=== PATIENT | female | born 1985 | race Caucasian/White ===

== ENCOUNTER 2021-02-10 16:32 | Emergency (ER) | payer OTHER, SELFPAY ==
[2021-02-10 16:55] VITALS: BP 137/85; PULSE 84; RESP 18; TEMP 36.6; O2SAT 99; BMI 35.6
--- NOTE | 2021-02-10 17:01 | ED_ITS ---
HPI - Female Genitourinary General: Chief complaint: Urogenital-Female Stated complaint: Sent from [place]..Possible UTI Time Seen by Provider: 02/10/21 17:01 Source: patient Mode of arrival: ambulatory Limitations: no limitations History of Present Illness: HPI Narrative: 35-year-old female comes in today with complaints of urinary changes. Patient reports for the last week she has had some low back pain and then 3 days ago she had a bout of enuresis. Patient has no history of chronic back problems. Patient has no significant fever. Patient does report about 2 weeks ago state had an episode of gastroenteritis in the house, since then she did have some constipation. Patient also reports that her low back has hurt her a little bit since riding a 4 rogel about 2 weeks a go. Patient denies any other symptoms. Patient also reports that she had a epidural with her last and since then she has had some increased back pain. Patient's other history includes cardiomyopathy after . MD elicited complaint: back pain and urinary incontinence Pertinent past history: tubal ligation Onset (ago): day(s) Location of symptoms: low back Severity: mild Female Urogenital Radiation: Non-Radiating Quality of pain: dull Vaginal discharge: none Vaginal bleeding: none Exacerbating factors: none Associated symptoms: Reports no associated symptoms Treatment prior to arrival: none Possible : other Review of Systems General: Reports: 10 or more systems reviewed and unremarkable except in HPI and below : Reports: urinary incontinence Musc: Reports: back pain Physical Exam Const: COMMON NORMALS: no acute distress and patient oriented x3 GENERAL APPEARANCE: cooperative HENMT: COMMON NORMALS: normocephalic and Normal external nose present HEAD & SCALP: normal to inspection and normocephalic NOSE: Normal external nose present Eye: GENERAL EYE: appearance normal, both eyes and all related structures Neck/C-Spine: COMMON NORMALS: full ROM Chest: COMMONS NORMALS: normal inspection of the chest Resp: COMMON NORMALS: normal respiratory effort EFFORT & INSPECTION: Yes able to speak in complete sentences Cardio: COMMON NORMALS: regular rate and regular rhythm RATE: regular rate RHYTHM: regular rhythm GI: COMMON NORMALS: non-tender : COMMON NORMALS: Yes no CVA tenderness BLADDER/KIDNEY EXAM: Yes no CVA tenderness Back/Pelvis: COMMON NORMALS: no CVA tenderness LUMBAR SPINE/LOWER BACK: Yes paraspinal muscle spasm Extremity: COMMON NORMALS: normal to inspection Neuro: COMMON NORMALS: patient oriented x3 and moves all extremities Psych: COMMON NORMALS: mental status grossly normal and cooperative Skin: COMMON NORMALS: no rashes or lesions noted GENERAL SKIN EXAM: no rashes or lesions noted Course Vital Signs: Vital signs: Vital Signs Temperature 97.8 F 02/10/21 16:55 Pulse Rate 84 02/10/21 16:55 Respiratory Rate 18 02/10/21 16:55 Blood Pressure 137/85 02/10/21 16:55 Pulse Oximetry 99 02/10/21 16:55 MDM - Female MDM Narrative: Medical decision making narrative: Patient comes in for concerns of low back pain and urinary incontinence. Patient also reports some mild discomfort with urination but she was more concerned of having 1 incident of enuresis about 3 days ago. Patient has had no further problems with that but has also noticed some low back pain. On exam there is no midline spinal tenderness, but there is some paraspinous muscle tenderness. Abdomen is soft with some mild tenderness to the right suprapubic area. Vital signs are normal. Differential diagnosis includes but not limited to stress incontinence, urinary tract infection, intervertebral disc disease, cauda equina syndrome. No significant signs for cauda equina syndrome is noted. Patient did have one episode of nocturnal enuresis but also reports some episodes of stress incontinence with coughing. Urinalysis showed a small amount of red blood cells along with a trace of white blood cells. I recommended we go ahead and treat for urinary tract infection with Macrobid 100 mg twice a day for 5 days. Patient then should follow-up with primary care for further evaluation and treatment. I reviewed the possibility of stress incontinence and possibility of neurologic etiology. At this time there is no strong indication for neurologic etiology, and patient may have a mild urinary tract infection or just some idiopathic stress incontinence. Patient stated understanding of plan and recommendations for follow-up. Lab Data: Labs: Lab Results 02/10/21 02/10/21 Range/Units 16:50 16:50 Urine Color Yellow (Yellow) Urine Appearance Cloudy (CLEAR) Urine pH 7 (5-7) Ur Specific Gravit y 1.010 (1.005-1.030) Urine Protein Neg (Negative) Urine Glucose (UA) Norm (Normal) Urine Ketones Negative (Negative) Urine Blood 2+ H (Negative) Urine Nitrate Negative (Negative) Urine Bilirubin Neg (Negative) Urine Urobilinogen Norm (Negative) mg/dL Ur Leukocyte Marie ase Negative (Negative) Urine RBC Rare (0-2) /hpf Urine WBC Rare (0-5) /hpf Ur Squamous Epith Cells 0-4 H (0-5) /hpf Amorphous Sediment Not Reportable Urine Bacteria Trace (NONE) /hpf Urine HCG, Qual Negative (Negative) Discharge Plan Discharge Patient Disposition: Home Clinical Impression: Urinary tract infection Qualifiers: Urinary tract infection type: acute cystitis Hematuria presence: with hematuria Qualified Code(s): N30.01 - Acute cystitis with hematuria Condition: Stable Prescriptions: New Macrobid 100 mg capsule 100 mg PO BID 5 Days Qty: 10 RF: 0 Discharge Orders: Discharge ED (Routine); Ordered 02/10/21 Ordered By: Tanmay Vyas Referrals: Gunner Nagy DO [Primary Care Provider] - Discharge Diet: Usual diet Discharge Activity: Increase activity as tolerated Patient Instructions: Urinary Tract Infection in Women (ED), Opioid Safety Activity Restrictions/Additional Instructions: Healthy diet and activity. Take antibiotic with plenty of fluids. Follow-up with primary care for further evaluation and treatment. Return to the emergency department for new concerns. 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
[2021-02-10 17:27] LABS: Add Urine Microscopic? YES; Bacteria Urine TRACE /hpf; Bilirubin Urine Neg (Negative); Blood Urine 2+ (Negative); Glucose Urine UA Norm (Normal); Ketones Urine Negative (Negative); Leukocyte Esterase Urine Negative (Negative); Nitrate Urine Negative (Negative); Protein Urine Neg (Negative); RBC Urine RARE /hpf (0-2); Squamous Epithelial Cell Urine 0-4 /hpf (0-5); Urine Appearance Cloudy (CLEAR); Urine Color Yellow (Yellow); Urobilinogen Urine Norm (Negative); WBC Urine RARE /hpf (0-5); pH Urine 7 (5-7)
[2021-02-10 18:02] VITALS: BP 132/76; PULSE 83; RESP 16; O2SAT 99
== END 2021-02-10 18:03 | disposition home or self-care (01) ==
PROVIDERS: Emergency Provider Nurse Practitioner Family; PCP Emergency Medicine Emergency Medical Services
DX: N30.01 Acute cystitis with hematuria (principal)
CPT/HCPCS: 81001; 81025; 99282

== ENCOUNTER 2022-06-02 15:32 | Emergency (ER) | payer OTHER, SELFPAY ==
[2022-06-02 16:36] VITALS: BP 126/75; PULSE 71; RESP 16; TEMP 36.6; O2SAT 99; BMI 32.9
--- NOTE | 2022-06-02 19:07 | USR_ITS ---
PROCEDURE INFORMATION: Exam: US Pelvis Complete, Transabdominal and US Duplex Artery or Vein, Ovaries, Limited Exam date and time: 06/02/2022 8:18 PM Age: 37 years old Clinical indication: Other: Irregular menstruation; Additional info: Vag bleed/pain TECHNIQUE: Imaging protocol: Real-time transabdominal pelvic ultrasound with image documentation. Real-time duplex ultrasound scan of the arterial or venous flow of the ovaries with B-mode, color Doppler flow and spectral waveform analysis. Complete Pelvis, Limited Duplex. COMPARISON: CT abdomen pelvis w con* [id number] 03/29/2017 11:13 AM FINDINGS: Uterus: Poorly visualized endometrium measuring about 7 mm. No large uterine myoma or obvious imaging signs of adenomyosis. Cervix: Poorly visualized cervix. Vagina: Details are somewhat limited due to lack of endovaginal imaging. Right ovary/adnexa: Right ovary measures 2.1 x 2.3 x 3.2 cm. No obvious adnexal region masses. Next item Doppler flow is seen in both ovarian parenchyma demonstrating normal spectral waveforms. Left ovary/adnexa: Left ovary measures 2.1 x 2.5 by 3.1 cm. Intraperitoneal space: Transabdominal pelvic ultrasound were obtained. Duplex imaging was also performed due to pain and to exclude torsion. Urinary bladder: Bladder is suboptimally assessed due to nondistention. Anteverted uterus measures 6.9 by 3.5 x 5 cm. US/US pelvic with transvaginal IMPRESSION: 1. Somewhat limited details due to lack of endovaginal imaging. No acute abnormality or large / suspicious lesions otherwise. No ascites. No ovarian torsion. 2. Suboptimally visualized cervix and endometrium. Follow-up imaging including endovaginal ultrasound may be obtained if clinically indicated.
--- NOTE | 2022-06-02 19:07 | W.ED.FEMALGU ---
HPI - Female Genitourinary General: Chief complaint: Vaginal Bleeding Stated complaint: Heavy menstral bleeding/ COVIID + Time Seen by Provider: 06/02/22 18:47 Source: patient Mode of arrival: ambulatory Limitations: no limitations History of Present Illness: Patient is a 37-year-old female presents to ED today with a complaint of prolonged and heavy vaginal bleeding. Patient states she has a history of endometriosis but states over the past year or so her menstrual cycles have been fairly regular. She states approximately 10 days ago she began having some mild pelvic cramping that she states was consistent starting her cycle. She began having bleeding and about 4 to 5 days into her cycle contracted COVID. Patient states COVID symptoms were minimal and she feels like she is fully recovered from these and is not having any complaints at this time. She states her menstrual cycle however has been prolonged and seems to go from periods of very heavy bleeding and clots to light almost nonexistent bleeding. She states today while headed into work she thought menstrual cycle had subsided but then began developing sharp pelvic pains and noticed a gush of blood . Patient currently is not having pain. She is status post tubal ligation. She is not complaining of any vaginal discharge or vaginal odor. MD elicited complaint: vaginal bleeding and other (prolonged period) Pertinent past history: other (endometriosis) Onset (ago): day(s) (10 days ago) Quality of pain: cramping Vaginal bleeding: heavy and clots Exacerbating factors: none Relieving factors: none Associated symptoms: Deny abdominal pain, headache(s) or nausea Sexual activity: Yes (monogamous with ) Patient : No (hx of tubal ligation) Review of Systems Const: Denies: fever(s), chills, body aches, fatigue or malaise Card: Denies: chest pain Resp: Denies: dyspnea GI: Denies: abdominal pain, nausea, vomiting or diarrhea : Reports: vaginal bleeding and pelvic pain; Denies: flank pain, difficulty voiding, dysuria, urinary frequency, urinary urgency, urinary hesitancy, genital lesions, genital pruritis or vaginal odor Musc: Denies: back pain, extremity pain or joint pain Skin/Breast: Denies: rash Neuro: Denies: headache(s) Physical Exam Const: COMMON NORMALS: no acute distress, patient oriented x3, no limitations, alert and well nourished GENERAL APPEARANCE: cooperative ORIENTATION/CONSCIOUSNESS: Yes awake, Yes oriented to person, Yes oriented to place and Yes oriented to time Resp: COMMON NORMALS: normal respiratory effort and clear to auscultation bilaterally AUSCULTATION: clear to auscultation bilaterally Cardio: COMMON NORMALS: regular rate and regular rhythm RATE: regular rate RHYTHM: regular rhythm GI: COMMON NORMALS: Normal to inspection, nondistended, normoactive bowel sounds present, Soft to palpation, No hepatosplenomegaly present and no masses INSPECTION: Yes normal to inspection AUSCULTATION: Yes normoactive bowel sounds PALPATION: Yes Soft to palpation, Yes Tenderness to palpation present (GI) (mild discomfort throughout lower pelvis), No Guarding due to palpation present (GI), No Rigid due to palpation and Yes No hepatosplenomegaly present : COMMON NORMALS: Yes no CVA tenderness BLADDER/KIDNEY EXAM: Yes no CVA tenderness OB/EXTERNAL & SPECULUM: Deferred OB/external & speculum exam Back/Pelvis: COMMON NORMALS: no CVA tenderness Neuro: SACHIN COMA SCALE: document GCS findings Sachin coma scale eye opening: Spontaneous Sachin coma scale verbal response: Orientated Sachin coma scale motor response: Obey commands Sachin coma scale total score: 15 COMMON NORMALS: patient oriented x3 SENSORIUM/ORIENTATION: Yes alert, Yes oriented to person, Yes oriented to place and Yes oriented to time Skin: COMMON NORMALS: no rashes or lesions noted GENERAL SKIN EXAM: no rashes or lesions noted Course Vital Signs: Vital signs: Vital Signs Temperature 97.9 F 06/02/22 16:36 Pulse Rate 71 06/02/22 16:36 Respiratory Rate 16 06/02/22 16:36 Blood Pressure 126/75 06/02/22 16:36 Pulse Oximetry 99 06/02/22 16:36 Oxygen Delivery Me thod 06/02/22 16:36 MDM - Female Medical Decision Making Patient here with a prolonged menstrual cycle of approximately 10 days now. Her vital signs are stable. Her H&H are normal. Remainder of blood work is unremarkable. is negative. Pelvic ultrasound is suboptimal. Ultimately at this time I think patient is stable for discharge from an emergency standpoint with recommendations to follow-up with her primary care in 5 to 7 days of bleeding still persistent. Return to ED precautions regarding worsening or heavy bleeding or severe pain were discussed with patient who verbalized understanding. Lab Data : 06/02/22 19:34 06/02/22 19:34 Radiology Impressions Pelvic/Transvag US 06/02/22 19:07 IMPRESSION: 1. Somewhat limited details due to lack of endovaginal imaging. No acute abnormality or large / suspicious lesions otherwise. No ascites. No ovarian torsion. 2. Suboptimally visualized cervix and endometrium. Follow-up imaging including endovaginal ultrasound may be obtained if clinically indicated. Laboratory Results WBC 3.5 10^3/uL (4.0-10.0) L 06/02/22 19:34 RBC 4.56 10^6/uL (4.1-5.3) 06/02/22 19:34 Hgb 13.3 g/dL (11.5-15.3) 06/02/22 19:34 Hct 40.3 % (37.0-47.0) 06/02/22 19:34 MCV 88.4 fl (81-99) 06/02/22 19:34 MCH 29.2 pg (28.0-34.0) 06/02/22 19:34 MCHC 33.0 g/dL (30.0-36.0) 06/02/22 19:34 RDW 12.8 % (12.1-15.1) 06/02/22 19:34 Plt Count 188 10^3/cmm (130-400) 06/02/22 19:34 MPV 10.9 fL (7.4-10.4) H 06/02/22 19:34 Neut % (Auto) 38.2 % 06/02/22 19:34 Lymph % (Auto) 49.0 % 06/02/22 19:34 Crenshaw % (Auto) 10.8 % 06/02/22 19:34 Eos % (Auto) 1.4 % 06/02/22 19:34 Baso % (Auto) 0.3 % 06/02/22 19:34 Neut # (Auto) 1.34 10^3/uL (1.8-7.7) L 06/02/22 19:34 Lymph # (Auto) 1.7 10^3/uL (0.8-4.8) 06/02/22 19:34 Crenshaw # (Auto) 0.4 10^3/uL (0.2-0.9) 06/02/22 19:34 Eos # (Auto) 0.1 10^3/uL (0.0-0.8) 06/02/22 19:34 Baso # (Auto) 0.0 10^3/uL (0.0-0.1) 06/02/22 19:34 Nucleated RBC % (auto) 0 % 06/02/22 19:34 Nucleated RBCs # 0.0 /100WBC 06/02/22 19:34 Sodium 142 mmol/L (136-145) 06/02/22 19:34 Potassium 3.7 mmol/L (3.5-5.1) 06/02/22 19:34 Chloride 105 mmol/L (98-107) 06/02/22 19:34 Carbon Dioxide 25 mmol/L (22-) 06/02/22 19:34 Anion Gap 15.7 (5-19) 06/02/22 19:34 BUN 9 mg/dL (6-20) 06/02/22 19:34 Creatinine 0.6 mg/dL (0.5-0.9) 06/02/22 19:34 GFR Calculation 113.8 mL/min (90-130) 06/02/22 19:34 Glucose 94 mg/dL (65-115) 06/02/22 19:34 Calculated Osmolality 292 mOsm/kg (285-295) 06/02/22 19:34 Calcium 8.9 mg/dL (8.5-10.5) 06/02/22 19:34 Total Bilirubin 0.3 mg/dL (0.15-1.2) 06/02/22 19:34 AST 24 U/L (0-32) 06/02/22 19:34 ALT 27 U/L (0-33) 06/02/22 19:34 Alkaline Phosphatase 56 IU/L (35-105) 06/02/22 19:34 Total Protein 7.1 g/dL (6.6-8.7) 06/02/22 19:34 Albumin 4.5 g/dL (3.5-5.2) 06/02/22 19:34 Globulin 2.6 g/dL (1.3-4.6) 06/02/22 19:34 HCG, Qual Negative (Negative) 06/02/22 19:34 Discharge Plan Discharge Patient Disposition: Home Clinical Impression: Prolonged menstrual cycle Condition: Stable Discharge Orders: Discharge ED (Routine); Ordered 06/02/22 Ordered By: Gem Schaffer Referrals: Gunner Nagy DO [Primary Care Provider] - Coding 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
[2022-06-02 19:41] LABS: Basophils % 0.3 %; Eosinophils # 0.1 10^3/uL (0.0-0.8); Eosinophils % 1.4 %; Hematocrit 40.3 % (37.0-47.0); Hemoglobin 13.3 g/dL (11.5-15.3); Lymphocytes # 1.7 10^3/uL (0.8-4.8); Mean Corpuscular Hemoglobin 29.2 pg (28.0-34.0); Mean Corpuscular Volume 88.4 fl (81-99); Mean Platelet Volume 10.9 fL (7.4-10.4); Monocytes # 0.4 10^3/uL (0.2-0.9); Monocytes % 10.8 %; Neutrophils # 1.34 10^3/uL (1.8-7.7); Neutrophils % 38.2 %; Nucleated Red Blood Cells % 0 %; Platelet Count 188 10^3/cmm (130-400); Red Blood Count 4.56 10^6/uL (4.1-5.3); Red Cell Distribution Width 12.8 % (12.1-15.1); White Blood Count 3.5 10^3/uL (4.0-10.0)
[2022-06-02 19:52] LABS: HCG, Serum Qual Negative (Negative)
[2022-06-02 20:11] LABS: Alanine Aminotransferase 27 U/L (0-33); Albumin Level 4.5 g/dL (3.5-5.2); Alkaline Phosphatase 56 IU/L (35-105); Anion Gap 15.7 (5-19); Aspartate Amino Transferase 24 U/L (0-32); Blood Urea Nitrogen 9 mg/dL (6-20); Calcium 8.9 mg/dL (8.5-10.5); Carbon Dioxide 25 mmol/L (22-29); Chloride 105 mmol/L (98-107); Globulin 2.6 g/dL (1.3-4.6); Glomerular Filtration Rate 113.8 mL/min (90-130); Glucose 94 mg/dL (65-115); Osmolality Calculated 292 mOsm/kg (285-295); Potassium 3.7 mmol/L (3.5-5.1); Sodium 142 mmol/L (136-145); Total Bilirubin 0.3 mg/dL (0.15-1.2); Total Protein 7.1 g/dL (6.6-8.7)
== END 2022-06-02 22:00 | disposition home or self-care (01) ==
PROVIDERS: Emergency Provider Physician Assistant; PCP Emergency Medicine Emergency Medical Services
DX: N92.0 Excessive and frequent menstruation with regular cycle (principal)
CPT/HCPCS: 76830; 76856; 80053; 84703; 85025; 99284

== ENCOUNTER 2023-11-23 22:59 | Emergency (ER) | payer OTHER, SELFPAY ==
--- NOTE | 2023-11-23 23:02 | XRR_ITS ---
PROCEDURE INFORMATION: Exam: XR Left Foot Exam date and time: 11/23/2023 11:18 PM Age: 38 years old Clinical indication: Injury or trauma; Other: Blunt trauma; Patient HX: Stool fell on top of left foot. Moderate swelling to dorsal side of foot along metatarsals. Unable to bear weight. TECHNIQUE: Imaging protocol: Radiologic exam of the left foot. Views: 3 or more views. COMPARISON: CR (LOW EXM, ) 11/23/2023 11:18 PM FINDINGS: Bones/joints: No evidence of acute fracture or dislocation. No erosive disease. No significant degenerative change. Soft tissues: Prominent dorsal soft tissue swelling over the forefoot. XR/XR foot LT min 3V* [id number] IMPRESSION: No acute bony injury. Prominent dorsal soft tissue swelling over the forefoot.
--- NOTE | 2023-11-23 23:02 | XRR_ITS ---
PROCEDURE INFORMATION: Exam: XR Left Ankle Exam date and time: 11/23/2023 11:18 PM Age: 38 years old Clinical indication: Injury or trauma; Other: Blunt trauma; Patient HX: Stool fell on top of left foot. Moderate swelling to dorsal side of foot along metatarsals. Unable to bear weight. TECHNIQUE: Imaging protocol: Radiologic exam of the left ankle. Views: 3 or more views. COMPARISON: CR XR foot LT min 3V* [id number] 11/23/2023 11:18 PM FINDINGS: Bones/joints: No evidence of acute fracture or dislocation. No erosive disease. No significant degenerative change. Soft tissues: Normal. XR/XR ankle LT min 3V* [id number] IMPRESSION: No acute bony injury.
[2023-11-23 23:17] VITALS: BP 122/72; PULSE 76; RESP 18; TEMP 36.8; O2SAT 99; BMI 34.7
[2023-11-23 23:35] VITALS: BP 136/87; PULSE 65; RESP 18; O2SAT 96
--- NOTE | 2023-11-23 23:45 | W.ED.EXTPRO ---
HPI - Extremity Problem General: Chief complaint: Extremity Injury, Lower Stated complaint: left foot pain Time Seen by Provider: 11/23/23 23:41 Source: patient Mode of arrival: ambulatory Limitations: no limitations History of Present Illness: 38-year-old female states she had picked up her passive found and knocked over a wood footstool that landed on her left foot she has pain contusion to the dorsum of her left foot rates the pain a 5 out of 10 denies any other injuries at this time. Associated symptoms: Deny chest pain, fever(s) or rash Review of Systems Const: Denies: fever(s), chills, body aches or change in appetite ENMT: Denies: throat pain or dental pain Card: Denies: chest pain Resp: Denies: dyspnea GI: Denies: abdominal pain, nausea, vomiting or diarrhea Musc: Reports: extremity pain; Denies: neck pain or back pain Skin/Breast: Denies: rash Neuro: Denies: headache(s) [facility] Female Reproductive History: Date of last menstrual period: 11/23/23 Physical Exam Const: COMMON NORMALS: no acute distress and patient oriented x3 HENMT: COMMON NORMALS: normocephalic HEAD & SCALP: normocephalic Eye: COMMON NORMALS: conjunctivae normal CONJUNCTIVA: Yes conjunctivae normal Neck/C-Spine: COMMON NORMALS: full ROM Chest: COMMONS NORMALS: normal inspection of the chest Resp: COMMON NORMALS: normal respiratory effort Extremity: NARRATIVE EXTREMITY EXAM: Contusion noted to dorsum left foot Neuro: COMMON NORMALS: patient oriented x3 Psych: COMMON NORMALS: mental status grossly normal Skin: COMMON NORMALS: no rashes or lesions noted GENERAL SKIN EXAM: no rashes or lesions noted Course Vital Signs: Vital signs: Vital Signs Temperature 98.3 F 11/23/23 23:17 Pulse Rate 65 11/23/23 23:35 Respiratory Rate 18 11/23/23 23:35 Blood Pressure 136/87 11/23/23 23:35 Pulse Oximetry 96 11/23/23 23:35 Oxygen Delivery Me thod Room Air 11/23/23 23:35 MDM - Extremity (Nontraumatic) Medical Decision Making Patient presents here with foot contusion x-ray shows no fracture she stable for discharge follow-up PCP return if worsening Medical Records I reviewed the patient's medical records. Lab Data Radiology Impressions Ankle X-Ray 11/23/23 23:02 IMPRESSION: No acute bony injury. Foot X-Ray 11/23/23 23:02 IMPRESSION: No acute bony injury. Prominent dorsal soft tissue swelling over the forefoot. All radiology interpretation(s) finalized by discharge Discharge Plan Discharge Patient Disposition: Home Clinical Impression: Contusion of foot, left Condition: Stable Prescriptions: No Action sertraline 100 mg tablet 100 mg PO DAILY amoxicillin-pot clavulanate 500-125 mg tablet 1 tab PO Q8H 7 Days Qty: 21 0RF fluconazole [Diflucan] 150 mg tablet 150 mg PO Q3D Qty: 2 0RF Rx Instructions: may repeat second dose 72 hrs after first dose if symptoms persist Discharge Orders: Discharge ED (Routine); Ordered 11/23/23 Ordered By: Didier Velasquez Referrals: Gunner Nagy DO [Primary Care Provider] - Discharge Diet: Advance as tolerated Discharge Activity: Resume usual activity Patient Instructions: Foot Contusion (ED) Coding Level of Care 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
[2023-11-23 23:56] VITALS: BP 136/84; PULSE 74; RESP 16; O2SAT 96
== END 2023-11-23 23:52 | disposition home or self-care (01) ==
PROVIDERS: Emergency Provider Emergency Medicine; PCP Emergency Medicine Emergency Medical Services
DX: S90.32XA Contusion of left foot, initial encounter (principal); W20.8XXA Other cause of strike by thrown, projected or falling object, initial encounter
CPT/HCPCS: 73610; 73630; 99283

== ENCOUNTER 2023-12-07 06:00 | Outpatient (CLI) | payer OTHER, MEDICAID, SELFPAY | END 2023-12-07 06:01 | disposition home or self-care (01) | LOC: SPT 12-10 11:13 | PROVIDERS: PCP Nurse Practitioner; Visit Provider Podiatrist Foot & Ankle Surgery | DX: Z46.89 Encounter for fitting and adjustment of other specified devices (principal); M79.672 Pain in left foot; S90.32XA Contusion of left foot, initial encounter; W20.8XXA Other cause of strike by thrown, projected or falling object, initial encounter | CPT/HCPCS: 97760; 99203; L4361 ==

== ENCOUNTER → 2023-12-07 11:20 | Outpatient (BNVA) | payer OTHER, MEDICAID, SELFPAY | PROVIDERS: PCP Nurse Practitioner; Visit Provider Podiatrist Foot & Ankle Surgery | DX: M79.672 Pain in left foot (principal); S90.32XA Contusion of left foot, initial encounter; W20.8XXA Other cause of strike by thrown, projected or falling object, initial encounter | CPT/HCPCS: 73630 ==

== ENCOUNTER → 2023-12-20 09:10 | Outpatient (BNVA) | payer OTHER, MEDICAID, SELFPAY | PROVIDERS: PCP Nurse Practitioner; Visit Provider Podiatrist Foot & Ankle Surgery | DX: S90.32XA Contusion of left foot, initial encounter; X58.XXXA Exposure to other specified factors, initial encounter | CPT/HCPCS: 99213 ==